=== PATIENT | male | born 1970 | race Caucasian/White ===

== ENCOUNTER → 2017-07-02 | Outpatient (CLI) | payer BC, OTHER | LOC: RAD 09:12 | DX: D86.0 Sarcoidosis of lung (principal) ==

== ENCOUNTER → 2018-11-18 | Outpatient (CLI) | payer BC, OTHER | LOC: RAD 08:11 | DX: J84.10 Pulmonary fibrosis, unspecified (principal) ==

== ENCOUNTER → 2020-02-10 | Outpatient (CLI) | payer BC, OTHER | LOC: RAD 07:11 | DX: J84.10 Pulmonary fibrosis, unspecified (principal); D86.9 Sarcoidosis, unspecified ==

== ENCOUNTER → 2021-03-05 | Outpatient (CLI) | payer OTHER | LOC: RAD 14:06 | PROVIDERS: ATTEND Internal Medicine | DX: J84.10 Pulmonary fibrosis, unspecified (principal); D86.9 Sarcoidosis, unspecified ==